=== PATIENT | female | born 1945 | race Caucasian/White ===

== ENCOUNTER 2018-05-28 12:49 | Inpatient (IN) | payer MEDICARE ==
[~2018-05-28] VITALS: Ht 167.6 cm; Wt 83.1 kg
[2018-05-28] VITALS (7 sets, daily range): BP systolic 118–142; BP diastolic 58–80
--- NOTE | ~2018-05-28 | EKG ---
[place], [place] ELECTROCARDIOGRAM REPORT NAME: IVON MEHTA UNIT #: [id number] ROOM: DOCTOR: LISA DRAFT REPORT BIRTHDATE: [birth year] [facility] Test Date: 2018-05-28 Test Time: 13:23:49 Pat Name: IVON MEHTA Department: Room: Gender: F Bladder Tier: EKG.[place] : 1945 Requested By: BLADIMIR LUKE Order Number: [id number] Reading MD: Janett Huerta MD Measurements Intervals [place] Rate: 63 P: 27 NM: 162 QRS: -11 QRSD: 92 T: 25 QT: 412 QTc: 422 Interpretive Statements Sinus rhythm Left ventricular hypertrophy Poor R wave progression Abnormal EKG. Electronically Signed On 05-28-2018 12:07:35 PDT by Janett Huerta MD CM:EKGRPT:ELECTROCARDIOGRAM REPORT [id number] BLADIMIR DONAHUE DRAFT REPORT BLADIMIR LUKE DO
[~2018-05-28 12:49] MED LIST: ACCUPRIL20 MG PO; SYMBICORT1 AE1 INH; SYNTHROID,LEV125 MCG PO; TENORMIN50 MG PO; ZOCOR20 MG PO
[2018-05-28 13:47] LABS: BASO # 0.1 10*3/uL (0.0-0.1); BASO % 0.5 % (0.0-1.0); EOS # 0.5 10*3/uL (0.0-0.4); EOS % 4.5 % (1.0-4.0); HEMATOCRIT 46.3 % (37.0-47.0); HEMOGLOBIN 14.9 g/dl (12.0-16.0); LYMPH # 2.6 10*3/uL (1.3-4.4); LYMPH % 24.6 % (27.0-41.0); MEAN CELL VOLUME 93.5 fl (81.0-99.0); MEAN CORPUSCULAR HGB 30.1 pg (27.0-31.0); MEAN CORPUSCULAR HGB CONC 32.2 g/dl (33.0-37.0); MEAN PLATELET VOLUME 10.6 fl (9.6-12.3); MONO # 0.7 10*3/uL (0.1-1.0); MONO % 6.4 % (3.0-9.0); NEUT # 6.7 10*3/uL (2.3-7.9); NEUT % 63.7 % (47.0-73.0); PLATELET COUNT AUTOMATED 227 10*3/uL (130-400); RED BLOOD COUNT 4.95 10*6/uL (4.10-5.10); RED CELL DISTRI WIDTH 13.5 % (0-14.5); WHITE BLOOD COUNT 10.4 10*3/uL (4.8-10.8)
[2018-05-28 13:59] LABS: ACT PARTIAL THROMBO TIME 21.8 SECONDS (20.8-31.5)
[2018-05-28 14:02] LABS: ALBUMIN 3.2 gm/dl (3.1-4.5); ALKALINE PHOSPHATASE 100 U/L (45-117); BUN 16 mg/dl (7-24); CHLORIDE 109 mmol/L (98-107); CREATININE 0.89 mg/dL (0.55-1.02); LIPASE 91 U/L (73-393); POTASSIUM 4.4 mmol/L (3.5-5.1); SGOT/AST 12 IU/L (3-35); SGPT/ALT 14 U/L (12-78); SODIUM 141 mmol/L (136-145); TOTAL PROTEIN 6.9 gm/dL (6.4-8.2)
[2018-05-28 14:04] LABS: TROPONIN I < 0.015 ng/ml (<0.045)
[2018-05-28] MEDS ORDERED: PRINIVIL20 M1 PO (16:22)
[2018-05-28] MEDS ORDERED: VITAMIN D50000 UNIT PO (16:23)
[2018-05-29 01:00] VITALS: BP 132/72
[2018-05-29 04:00] VITALS: BP 140/72
[2018-05-29 05:57] LABS: BASO % 0.1 % (0.0-1.0); HEMATOCRIT 48.3 % (37.0-47.0); HEMOGLOBIN 15.1 g/dl (12.0-16.0); LYMPH # 1.8 10*3/uL (1.3-4.4); LYMPH % 12.2 % (27.0-41.0); MEAN CELL VOLUME 94.2 fl (81.0-99.0); MEAN CORPUSCULAR HGB 29.4 pg (27.0-31.0); MEAN CORPUSCULAR HGB CONC 31.3 g/dl (33.0-37.0); MEAN PLATELET VOLUME 10.7 fl (9.6-12.3); MONO # 0.2 10*3/uL (0.1-1.0); MONO % 1.1 % (3.0-9.0); NEUT # 12.4 10*3/uL (2.3-7.9); PLATELET COUNT AUTOMATED 259 10*3/uL (130-400); RED BLOOD COUNT 5.13 10*6/uL (4.10-5.10); RED CELL DISTRI WIDTH 13.4 % (0-14.5); WHITE BLOOD COUNT 14.4 10*3/uL (4.8-10.8)
[2018-05-29 06:04] LABS: ALKALINE PHOSPHATASE 101 U/L (45-117); BUN 16 mg/dl (7-24); CHLORIDE 111 mmol/L (98-107); CHOLESTEROL 181 mg/dL (<200); CREATININE 0.86 mg/dL (0.55-1.02); HDL CHOLESTEROL 52 mg/dl (40-60); LDL CHOLESTEROL 114 mg/dL (9-159); PHOSPHOROUS 3.5 mg/dL (2.5-4.9); POTASSIUM 4.2 mmol/L (3.5-5.1); SGOT/AST 11 IU/L (3-35); SGPT/ALT 14 U/L (12-78); SODIUM 142 mmol/L (136-145); TOTAL PROTEIN 6.8 gm/dL (6.4-8.2); TRIGLYCERIDES 75 mg/dl (<150); VLDL CHOLESTEROL 15 mg/dL (6-40)
[2018-05-29 06:10] LABS: FREE T4 1.35 ng/dl (0.76-1.46); THYROID STIM HORMONE (HS) 0.343 uIU/ml (0.358-4.75)
[2018-05-29 06:11] LABS: ACT PARTIAL THROMBO TIME 21.1 SECONDS (20.8-31.5)
[2018-05-29 07:26] LABS: VITAMIN D, 25-HYDROXY 61.6 ng/mL (30-100)
[2018-05-29 08:00] VITALS: BP 142/80
[2018-05-29] MEDS ORDERED: HYDR12.5C PO (09:38)
== END 2018-05-29 10:38 | disposition home or self-care (01) | DRG 916 ==
LOC: ED 12:49 → EDHOLD 15:43 → ICCU 15:43 → 5E 16:05 → ICCU 16:12
PROVIDERS: Emergency Medicine; Family Medicine
DX: T78.3XXA Angioneurotic edema, initial encounter (principal); E44.0 Moderate protein-calorie malnutrition; E83.41 Hypermagnesemia; E78.5 Hyperlipidemia, unspecified; I10 Essential (primary) hypertension; E03.9 Hypothyroidism, unspecified; E66.9 Obesity, unspecified; R79.82 Elevated C-reactive protein (CRP); R06.82 Tachypnea, not elsewhere classified; Z96.651 Presence of right artificial knee joint; Z68.31 Body mass index [BMI] 31.0-31.9, adult; Z90.710 Acquired absence of both cervix and uterus; Z82.49 Family history of ischemic heart disease and other diseases of the circulatory system; Z79.899 Other long term (current) drug therapy

== ENCOUNTER 2018-05-31 12:23 | Emergency (ER) | payer MEDICARE ==
[~2018-05-31] VITALS: Ht 167.6 cm; Wt 83.0 kg
[~2018-05-31 12:23] MED LIST changes: +HYDR12.5C PO; +PRINIVIL20 M1 PO; +VITAMIN D50000 UNIT PO
[2018-05-31 12:46] LABS: BILIRUBIN NEGATIVE (NEGATIVE); BLOOD NEGATIVE (NEGATIVE); CLARITY SL CLOUDY (CLEAR); COLOR YELLOW (YELLOW); GLUCOSE NEGATIVE (NEGATIVE); KETONE NEGATIVE (NEGATIVE); LEUKO ESTERASE 2+ (NEGATIVE); NITRITE NEGATIVE (NEGATIVE); PH 5.5 (5.0-9.0); SPECIFIC GRAVITY <= 1.005 (1.005-1.030); UROBILINOGEN 0.2 E.U./dl (0.2-1.0)
[2018-05-31 12:55] LABS: BACTERIA TRACE; EPITHELIAL CELLS 15-20; WBC 16-20 wbc/hpf (0-5)
[2018-05-31] MEDS ORDERED: DIPHENHYDRAMINE50 M1 PO (13:17)
[2018-05-31] MEDS ORDERED: LEVAQUIN250 M1 PO (13:17)
== END 2018-05-31 13:56 | disposition home or self-care (01) ==
LOC: ED 12:23
PROVIDERS: Emergency Medicine
DX: L27.0 Generalized skin eruption due to drugs and medicaments taken internally (principal); T50.905A Adverse effect of unspecified drugs, medicaments and biological substances, initial encounter; N39.0 Urinary tract infection, site not specified; I10 Essential (primary) hypertension; E03.9 Hypothyroidism, unspecified; E78.5 Hyperlipidemia, unspecified; E66.9 Obesity, unspecified; Z88.8 Allergy status to other drugs, medicaments and biological substances; Z79.899 Other long term (current) drug therapy; Y92.89 Other specified places as the place of occurrence of the external cause

== ENCOUNTER → 2019-10-20 | Outpatient (CLI) | payer MEDICARE ==
[~2019-10-20] MED LIST changes: +DIPHENHYDRAMINE50 M1 PO; +LEVAQUIN250 M1 PO
== END | disposition home or self-care (01) ==
LOC: MAMMO 13:36
DX: Z12.31 Encounter for screening mammogram for malignant neoplasm of breast (principal)

== ENCOUNTER → 2020-01-05 | Outpatient (CLI) | payer MEDICARE | END | disposition home or self-care (01) | LOC: RAD 14:15 | DX: M17.12 Unilateral primary osteoarthritis, left knee (principal) ==

== ENCOUNTER 2020-09-15 13:02 | Emergency (ER) | payer MEDICARE ==
[~2020-09-15] VITALS: Ht 167.6 cm; Wt 106.6 kg
[2020-09-15] MEDS ORDERED: TYLENOL325 M1 PO (14:06)
[2020-09-15] MEDS ORDERED: NAPROXEN250 MG PO (14:06)
[2020-09-15] MEDS ORDERED: VOLTAREN100 GM T (14:06)
== END 2020-09-15 15:18 | disposition home or self-care (01) ==
LOC: ED 13:02
DX: M17.12 Unilateral primary osteoarthritis, left knee (principal); E78.5 Hyperlipidemia, unspecified; E03.9 Hypothyroidism, unspecified; I10 Essential (primary) hypertension; E78.00 Pure hypercholesterolemia, unspecified; Z79.899 Other long term (current) drug therapy; Z88.8 Allergy status to other drugs, medicaments and biological substances

== ENCOUNTER → 2021-02-04 | Outpatient (CLI) | payer MEDICARE ==
[~2021-02-04] MED LIST changes: +NAPROXEN250 MG PO; +TYLENOL325 M1 PO; +VOLTAREN100 GM T
== END | disposition home or self-care (01) ==
LOC: MAMMO 13:12
PROVIDERS: ATTEND Internal Medicine
DX: Z12.31 Encounter for screening mammogram for malignant neoplasm of breast (principal)

== ENCOUNTER → 2021-05-21 | Outpatient (CLI) | payer MEDICARE | END | disposition home or self-care (01) | LOC: RAD 11:59 | PROVIDERS: ATTEND Internal Medicine | DX: M17.12 Unilateral primary osteoarthritis, left knee (principal); M25.761 Osteophyte, right knee; M25.862 Other specified joint disorders, left knee ==

== ENCOUNTER 2022-07-09 17:02 | Emergency (ER) | payer MEDICARE ==
[~2022-07-09] VITALS: Wt 49.9 kg
== END 2022-07-09 20:25 | disposition home or self-care (01) ==
LOC: ED 17:02
DX: R51.9 Headache, unspecified (principal); Z20.822 Contact with and (suspected) exposure to COVID-19; R05.9 Cough, unspecified; Z88.8 Allergy status to other drugs, medicaments and biological substances; Z79.899 Other long term (current) drug therapy; Z90.710 Acquired absence of both cervix and uterus

== ENCOUNTER → 2025-08-14 | Outpatient (CLI) | payer MEDICARE | END | disposition home or self-care (01) | LOC: RAD 15:06 | PROVIDERS: ATTEND Nurse Practitioner Family | DX: M19.071 Primary osteoarthritis, right ankle and foot (principal); M25.571 Pain in right ankle and joints of right foot; M85.88 Other specified disorders of bone density and structure, other site; M79.89 Other specified soft tissue disorders; M77.31 Calcaneal spur, right foot ==